=== PATIENT | female | born 1985 | race Caucasian/White ===

== ENCOUNTER 2016-07-26 10:52 | Emergency (ER) | payer MEDICARE, MEDICAID ==
[2016-07-26 11:16] VITALS: BP 138/78
[2016-07-26] MEDS ORDERED: Ondansetron 4 MG Tab.DIS PO ONE (11:43)
[2016-07-26] MEDS ORDERED: Acetaminophen 500 MG Tab PO ONE (11:43)
--- NOTE | 2016-07-26 11:51 | EDM.PDOC ---
ED HPI GENERAL MEDICAL PROBLEM - General Chief Complaint: General Stated Complaint: FELL AND HIT HEAD HARD Time Seen by Provider: 07/26/16 11:25 Source of Information: Reports: Patient History Limitations: Reports: No Limitations - History of Present Illness INITIAL COMMENTS - FREE TEXT/NARRATIVE: Patient out walking dog today, dog pulled on leash causing patient to fall. She had LOC for unknown amount of time, does not remember hitting head. Dog ran home, patients family went out looking for her, found her dazed on side of road. Patient complains of right sided head pain, nausea and photophobia. 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 Denies: Dental Pain, Ear Discharge, Ear Pain, Nose Pain, Throat Pain, Vision Change Respiratory: Denies: Shortness of Breath, Wheezing, Cough Cardiovascular: Reports: Lightheadedness. Denies: Chest Pain, Blood Pressure Problem, Dyspnea on Exertion, Edema, Palpitations Endocrine: Reports: No Symptoms GI/Abdominal: Reports: No Symptoms : Reports: No Symptoms Musculoskeletal: Reports: Neck Pain, Other (Patient complains of right sided headache. She denies pain to neck, back, all extremities and hips. ) Skin: Denies: Cyanosis, Pallor, Diaphoresis, Bruising, Rash, Erythema, Wound Neurological: Reports: Dizziness, Headache, Other (She complains of tingling and numbness sensation to right side of head/face with headache.). Denies: Confusion, Paresthesia, Seizure, Trouble Speaking, Difficulty Walking, Change in Speech, Gait Disturbance Psychiatric: Reports: Anxiety. Denies: Confusion Hematologic/Lymphatic: Reports: No Symptoms Immunologic: Reports: No Symptoms ED EXAM, GENERAL - Physical Exam Exam: See Below Exam Limited By: No Limitations General Appearance: Alert, WD/WN, No Apparent Distress, Anxious, Mild Distress Eye Exam: Bilateral Eye: Normal Inspection, PERRL, Other (No nystagmus noted) Ears: Normal External Exam, Normal Canal, Hearing Grossly Normal, Normal TMs Ear Exam: Bilateral Ear: Auricle Normal, Canal Normal, TM normal Nose: Normal Inspection, Normal Mucosa, No Blood Throat/Mouth: Normal Inspection, Normal Lips, Normal Teeth, Normal Gums, Normal Oropharynx, Normal Voice, No Airway Compromise, Other (No missing or loose teeth. ) Head: Normocephalic, Facial Tenderness, Other (No contusion, abrasions or hematoma noted. Tingling, numbness type pain to right side of face with palpation. ). No: Facial Swelling Neck: Normal Inspection, Supple, Non-Tender, Full Range of Motion. No: Limited Range of Motion, Lymphadenopathy (R) Respiratory/Chest: No Respiratory Distress, Lungs Clear, Normal Breath Sounds, No Accessory Muscle Use, Chest Non-Tender Cardiovascular: Normal Peripheral Pulses, Regular Rate, Rhythm, No Edema, No Gallop, No Murmur, No Rub Peripheral Pulses: 2+: Carotid (L), Carotid (R), Radial (L), Radial (R), Dorsalis Pedis (L), Dorsalis Pedis (R) GI/Abdominal: Normal Bowel Sounds, Soft, Non-Tender, No Organomegaly, No Distention, No Abnormal Bruit, No Mass, Pelvis Stable Back Exam: Normal Inspection, Full Range of Motion. No: CVA Tenderness (R), CVA Tenderness (L), Decreased Range of Motion, Muscle Spasm, Paraspinal Tenderness, Vertebral Tenderness Extremities: Normal Inspection, Normal Range of Motion, Non-Tender, No Pedal Edema, Normal Capillary Refill Neurological: Alert, Oriented, CN II-XII Intact, Normal Cognition, Normal Gait, Normal Reflexes, No Motor/Sensory Deficits, Other (Photophobia and dizziness noted. ) Psychiatric: Normal Affect, Anxious Skin Exam: Warm, Dry, Intact, Normal Color, No Rash. No: Ecchymosis, Petechiae Lymphatic: No Adenopathy Course - Vital Signs Last Recorded V/S: Last Vital Signs Temp 36.2 C 07/26/16 11:16 Pulse 83 07/26/16 11:16 Resp 16 07/26/16 11:16 BP 138/78 07/26/16 11:16 Pulse Ox 100 07/26/16 11:16 - Orders/Labs/Meds Meds: Medications Discontinued Medications Generic Name Dose Route Start Last Admin Trade Name Freq PRN Reason Stop Dose Admin Acetaminophen 1,000 mg 07/26/16 11:43 07/26/16 11:48 Tylenol Extra Strength PO 07/26/16 11:44 1,000 mg ONETIME ONE Administration Ketorolac Tromethamine 60 mg 07/26/16 12:30 Toradol IM 07/26/16 12:31 ONETIME ONE Ondansetron HCl 4 mg 07/26/16 11:43 07/26/16 11:48 Zofran Odt PO 07/26/16 11:44 4 mg ONETIME ONE Administration - Radiology Interpretation Free Text/Narrative:: A head CT will be completed due to unknown amount of LOC. Patient will be provided zofran and acetaminophen for nausea and pain. She has an allergy to opiates. CT Results Date: 07/26/16 (Head CT negative for acute findings. ) Departure - Departure Time of Disposition: 12:36 Disposition: DC/Tfer to [place] [id number] Condition: fair Clinical Impression: Brain concussion - Discharge Information Instructions: Concussion, Adult Referrals: PCP,None [Primary Care Provider] - Forms: ED Department Discharge Additional Instructions: You had a fall with unknown amount of time unconscious. Your head CT was negative. You may have a concussion. You can take acetaminophen and ibuprofen as directed for your pain. You may have continued dizziness, nausea and headache. Follow up with a primary care provider in 1 to 2 weeks if not better. You can take ondansetron as directed for nausea. Keep yourself hydrated. Return for worsening of symptoms. - Assessment/Plan Assessment:: Fall with LOC, concussion Plan: Patietn had a fall with unknown amount of time unconscious. Head CT was negative. Concussion. She can take acetaminophen and ibuprofen as directed for your pain. She may have continued dizziness, nausea and headache. Follow up with a primary care provider in 1 to 2 weeks if not better. She can take ondansetron as directed for nausea. Keep herself hydrated. Return for worsening of symptoms.
--- NOTE | 2016-07-26 12:12 | CT ---
Head wo Cont HISTORY: Fall. Or a partial radiology haven't negative head CT on Frannie fracture COMPARISON: None TECHNIQUE: Noncontrast enhanced axial cuts were obtained of the brain. Total DLP: 657. FINDINGS:There is no cerebral or subdural hemorrhage. There is no mass effect or edema. The ventricl es and CSF spaces are appropriate for age. No space occupying lesions are demonstrated. The orbital structures are unremarkable. The sinuses demonstrate normal aeration. IMPRESSION: Negative exam.
[2016-07-26] MEDS ORDERED: Ketorolac 60 MG/2 ML SDV IM ONE (12:30)
== END 2016-07-26 13:15 | disposition home or self-care (01) ==
LOC: JP.ED 10:52
DX: S06.0X9A Concussion with loss of consciousness of unspecified duration, initial encounter (principal); F41.9 Anxiety disorder, unspecified; F17.210 Nicotine dependence, cigarettes, uncomplicated; Z88.5 Allergy status to narcotic agent; Z98.51 Tubal ligation status; W01.0XXA Fall on same level from slipping, tripping and stumbling without subsequent striking against object, initial encounter
CPT/HCPCS: 70450; 96372; 99284; 99285; A9270; J1885

== ENCOUNTER 2017-05-27 11:20 | Emergency (ER) | payer MEDICARE, MEDICAID ==
[2017-05-27] MEDS ORDERED: Lactated Ringers 1,000 ML IV ONE (12:38)
[2017-05-27] MEDS ORDERED: Ketorolac 30 MG/ML SDV IVPUSH ONE (12:38)
[2017-05-27] MEDS ORDERED: Ondansetron 4 MG/2 ML SDV IVPUSH ONE (12:38)
--- NOTE | 2017-05-27 12:41 | EDM.PDOC ---
ED HPI GENERAL MEDICAL PROBLEM - General Chief Complaint: Abdominal Pain Stated Complaint: ABDOMINAL PAIN Time Seen by Provider: 05/27/17 12:20 Source of Information: Reports: Patient, Old Records, RN Notes Reviewed History Limitations: Reports: No Limitations - History of Present Illness INITIAL COMMENTS - FREE TEXT/NARRATIVE: 32-year-old female presents to the emergency department today complaint of abdominal pain, this is her third visit for abdominal pain, initially evaluated at [facility] on May 23 urinalysis and x-ray done at that time urinalysis unrevealing x-ray showed moderate to large amount of stool Zofran provided for treatment. Was evaluated by primary care yesterday workup included CBC, CMP beta -hCG and urinalysis also unremarkable wet prep was negative Chlamydia is pending treated empirically with Rocephin and doxycycline. 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: Psychiatric History: Reports: Anxiety - Past Surgical History HEENT Surgical History: Reports: Tonsillectomy GI Surgical History: Reports: Appendectomy Female Surgical History: Reports: Tubal Ligation Social & Family History - Tobacco Use Smoking Status *Q: Light Tobacco Smoker Years of Tobacco use: 7 Packs/Tins Daily: 0.5 - Caffeine Use Caffeine Use: Reports: None - Recreational Drug Use Recreational Drug Use: No ED ROS GENERAL - Review of Systems Review Of Systems: See Below Constitutional: Denies: Fever, Chills HEENT: Reports: No Symptoms Respiratory: Reports: No Symptoms Cardiovascular: Reports: No Symptoms GI/Abdominal: Reports: Abdominal Pain, Nausea, Vomiting. Denies: Constipation, Diarrhea : Reports: No Symptoms Musculoskeletal: Reports: No Symptoms Skin: Reports: No Symptoms Neurological: Reports: No Symptoms ED EXAM, GI/ABD - Physical Exam Exam: See Below Exam Limited By: No Limitations General Appearance: Alert, Mild Distress Eyes: Bilateral: Normal Appearance Head: Atraumatic, Normocephalic Neck: Normal Inspection, Supple, Non-Tender, Full Range of Motion Respiratory/Chest: No Respiratory Distress, Lungs Clear, Normal Breath Sounds, No Accessory Muscle Use Cardiovascular: Regular Rate, Rhythm, No Murmur GI/Abdominal Exam: Normal Bowel Sounds, Soft, No Organomegaly, No Distention, No Mass, Tender (Right lower quadrant) Back Exam: Normal Inspection, Full Range of Motion. No: CVA Tenderness (R), CVA Tenderness (L) Course - Vital Signs Last Recorded V/S: Last Vital Signs Temp 96.1 F 05/27/17 12:04 Pulse 86 05/27/17 14:02 Resp 16 05/27/17 14:02 BP 126/81 05/27/17 14:02 Pulse Ox 95 05/27/17 14:02 - Orders/Labs/Meds Orders: Active Orders 24 hr Category Date Time Status Iopamidol [Isovue-300 (61%)] Med 05/27/17 12:47 Active 88 ml IV . DIRECTED PRN Sodium Chloride 0.9% [Normal Saline] 70 ml Med 05/27/17 13:00 Active IV ASDIRECTED Medication Orders Sodium Chloride (Normal Saline) 70 mls @ 3 mls/sec IV ASDIRECTED THERON Last Admin: 05/27/17 13:03 Dose: 3 mls/sec Iopamidol (Isovue-300 (61%)) 88 ml IV . DIRECTED PRN PRN Reason: RADIOLOGY EXAM Stop: 05/28/17 12:48 Last Admin: 05/27/17 13:03 Dose: 88 ml Meds: Medications Generic Name Dose Route Start Last Admin Trade Name Freq PRN Reason Stop Dose Admin Sodium Chloride 70 mls @ 3 mls/sec 05/27/17 13:00 05/27/17 13:03 Normal Saline IV 3 mls/sec ASDIRECTED THERON Administration Iopamidol 88 ml 05/27/17 12:47 05/27/17 13:03 Isovue-300 (61%) IV 05/28/17 12:48 88 ml . DIRECTED PRN Administration RADIOLOGY EXAM Discontinued Medications Generic Name Dose Route Start Last Admin Trade Name Freq PRN Reason Stop Dose Admin Acetaminophen 650 mg 05/27/17 13:50 05/27/17 14:01 Tylenol PO 05/27/17 13:51 650 mg NOW ONE Administration Al Hydroxide/Mg Hydroxide 15 0 ml 05/27/17 14:32 ml/ Lidocaine HCl 15 ml PO 05/27/17 14:33 ONETIME ONE Lactated Ringer's 1,000 mls @ 999 mls/hr 05/27/17 12:38 05/27/17 13:21 Ringers, Lactated IV 05/27/17 13:38 999 mls/hr BOLUS ONE Administration Ketorolac Tromethamine 30 mg 05/27/17 12:38 05/27/17 13:20 Toradol IVPUSH 05/27/17 12:39 30 mg ONETIME ONE Administration Ondansetron HCl 4 mg 05/27/17 12:38 05/27/17 13:23 Zofran IVPUSH 05/27/17 12:39 4 mg ONETIME ONE Administration Departure - Departure Time of Disposition: 14:47 Disposition: Home, Self-Care 01 Condition: Fair Clinical Impression: Abdominal pain Qualifiers: Abdominal location: lower abdomen, unspecified Qualified Code(s): R10.30 - Lower abdominal pain, unspecified - Discharge Information Referrals: PCP,None [Primary Care Provider] - Forms: ED Department Discharge Additional Instructions: Please followup with your primary care provider in 3-5 days if not better, please call return to the emergency department with worsening of symptoms. - My Orders Last 24 Hours: My Active Orders 05/27/17 12:47 Iopamidol [Isovue-300 (61%)] 88 ml IV . DIRECTED PRN 05/27/17 13:00 Sodium Chloride 0.9% [Normal Saline] 70 ml IV ASDIRECTED - Assessment/Plan Last 24 Hours: My Active Orders 05/27/17 12:47 Iopamidol [Isovue-300 (61%)] 88 ml IV . DIRECTED PRN 05/27/17 13:00 Sodium Chloride 0.9% [Normal Saline] 70 ml IV ASDIRECTED Plan: Assessment Acuity = acute Site and laterality = abdominal pain, vaginal discharge nausea and vomiting Etiology = suspicious for pelvic inflammatory disease Manifestations = none Location of injury = Home Lab values = CT scan abdomen and pelvis shows no acute process Plan she declined any further workup at this time recommend continue antibiotics of doxycycline follow-up primary care 3-5 days for reevaluation This note was dictated using [employer] voice recognition software please call with any questions on syntax or wendy.
[2017-05-27] MEDS ORDERED: Iopamidol 612 MG/ML 100 ML Bottle IV PRN (12:47)
--- NOTE | 2017-05-27 13:25 | CT ---
Abdomen Pelvis w Cont HISTORY: Right lower quadrant pain, history of appendectomy Axial spiral enhanced CT scan of the abdomen and pelvis was obtained using IV contrast only. Coronal reconstructions were obtained. There are no prior exams for comparison. Auto dosage and iterative reconstruction techniques were employed. FINDINGS: Heart size is within normal limits. Lung bases are clear. No focal abnormality of the liver or spleen is identified. There is a small accessory splenule adjacent to the anterior margin of the spleen. I see no abnormality of the gallbladder, pancreas, adrenal glands, or kidneys. There is no bi liary or pancreatic duct dilatation. No renal stone disease is identified. I see no hydronephrosis or ureteral dilatation. Abdominal aorta is unremarkable. No pelvic mass or abnormal fluid collections are seen. There is a small involuting follicular cyst on the left ovary measuring proximally 8 x 10 mm. I see no pelvic, retroperitoneal, or mesenteric adeno angela. There is no free air or free fluid. Probable tubal ligation clips are noted bilaterally. Loops of small bowel are nondistended. The patient has history of prior appendectomy. I see no diverticula r disease or other colon abnormality. No lytic or blastic bony lesion is seen. IMPRESSION: 1. No acute intra-abdominal or pelvic abnormality is identified. 2. History of appendectomy. Probable bilateral tubal ligation clips are noted. 3. A small involuting follicular cyst is noted on the left ovary. Report was called to Officer in the Emergency Department at 1320 hours.
[2017-05-27] MEDS ORDERED: Acetaminophen 325 MG Tab PO ONE (13:50)
[2017-05-27 14:03] VITALS: BP 126/81
[2017-05-27] MEDS ORDERED: Alum Hydrox/Mag Hydrox/Simeth 15 ML, Lidocaine 2% 15 ML PO ONE ×2 (14:32)
== END 2017-05-27 14:54 | disposition home or self-care (01) ==
LOC: JP.ED 11:20
DX: R10.30 Lower abdominal pain, unspecified (principal); F17.210 Nicotine dependence, cigarettes, uncomplicated; Z88.5 Allergy status to narcotic agent
CPT/HCPCS: 74177; 96361; 96374; 96375; 99284; A9270; J1885; J2405; J7030; J7120; Q9967

== ENCOUNTER 2018-06-24 13:13 | Emergency (ER) | payer MEDICARE, MEDICAID ==
[2018-06-24 14:01] VITALS: BP 124/71
[2018-06-24] MEDS ORDERED: Ketorolac 60 MG/2 ML SDV IM ONE (14:05)
[2018-06-24] MEDS ORDERED: traMADol 50 MG Tab PO ONE (14:09)
--- NOTE | 2018-06-24 14:10 | EDM.PDOC ---
ED HPI GENERAL MEDICAL PROBLEM - General Chief Complaint: Back Pain or Injury Stated Complaint: LOWER BACK PAIN Time Seen by Provider: 06/24/18 13:55 Source of Information: Reports: Patient, Old Records, RN History Limitations: Reports: No Limitations - History of Present Illness INITIAL COMMENTS - FREE TEXT/NARRATIVE: 33 yo female presents with progressive low back pain over the past several days. Has not been to the clinic for this. 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 She has a hx of kidney stones, but this feels different. Movement exacerbates. No bowel or bladder dysfunction. No fever or chills. No self treatment. Is allergic to opiates. Feels somewhat like her SI joint pain but extends higher. No urinary sx's. Has fibromyalgia also. She lives in [place], her provider is in [place], [place]. 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 below) (none) - Related Data Allergies Allergy/AdvReac Type Severity Reaction Status Date / Time opioids Allergy Hives Uncoded 06/24/18 13:39 Home Meds: Home Meds Cyclobenzaprine [Flexeril] 10 mg PO TID PRN #10 tab 06/24/18 [Rx] FLUoxetine HCl [Fluoxetine HCl] 06/24/18 [History] clonazePAM [Clonazepam] 1 mg PO 06/24/18 [History] traMADol [Ultram] 50 - 100 mg PO Q6H PRN #14 tab 06/24/18 [Rx] 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: Psychiatric History: Reports: Anxiety - Past Surgical History HEENT Surgical History: Reports: Tonsillectomy GI Surgical History: Reports: Appendectomy Female Surgical History: Reports: Tubal Ligation Social & Family History - Tobacco Use Smoking Status *Q: Current Every Day Smoker Years of Tobacco use: 19 Packs/Tins Daily: 0.5 - Caffeine Use Caffeine Use: Reports: Coffee - Recreational Drug Use Recreational Drug Use: No ED ROS GENERAL - Review of Systems Review Of Systems: See Below Constitutional: Reports: No Symptoms HEENT: Reports: No Symptoms Respiratory: Reports: No Symptoms Cardiovascular: Reports: No Symptoms GI/Abdominal: Reports: No Symptoms : Reports: No Symptoms Musculoskeletal: Reports: Back Pain (low) Skin: Reports: No Symptoms Neurological: Reports: No Symptoms Psychiatric: Reports: No Symptoms ED EXAM,LOWER BACK PAIN/INJURY - Physical Exam Exam: See Below Exam Limited By: No Limitations General Appearance: Alert, WD/WN, Mild Distress, Obese Eye Exam: Bilateral Eye: Normal Inspection Ears: Normal External Exam, Normal Canal, Hearing Grossly Normal, Normal TMs Nose: Normal Inspection, No Blood Throat/Mouth: Normal Inspection, Normal Lips, Normal Oropharynx, Normal Voice, No Airway Compromise Head: Atraumatic, Normocephalic Neck: Normal Inspection, Supple, Non-Tender Respiratory/Chest: No Respiratory Distress, Lungs Clear, Normal Breath Sounds, No Accessory Muscle Use Cardiovascular: Regular Rate, Rhythm, No Edema GI/Abdominal: Normal Bowel Sounds, Soft, Non-Tender, No Distention Back Exam: Normal Inspection, Other (Tenderness to bilateral paraspinous regions of lumbar spine and down to and including the SI jts. ). No: CVA Tenderness (R), CVA Tenderness (L) Extremities: Normal Inspection, Normal Range of Motion, Non-Tender, No Pedal Edema Neurological: Alert, Normal Mood/Affect, CN II-XII Intact, Normal Plantar Flexion, No Motor/Sensory Deficits, Oriented x 3 Psychiatric: Normal Affect, Normal Mood Skin Exam: Warm, Dry, Intact, Normal Color, No Rash Course - Vital Signs Text/Narrative:: Moderate relief achieved with these meds. Last Recorded V/S: Last Vital Signs Temp 36.2 C 06/24/18 13:55 Pulse 81 06/24/18 13:55 Resp 18 06/24/18 13:55 BP 124/71 06/24/18 13:55 Pulse Ox 99 06/24/18 13:55 - Orders/Labs/Meds Orders: Active Orders 24 hr Category Date Time Status Lumbar Spine 2 or 3V [CR] Stat Exams 06/24/18 14:13 Taken Labs: Laboratory Tests 06/24/18 Range/Units 14:05 Urine Color Yellow Urine Appearance Slightly cloudy Urine pH 6.0 (4.5-8.0) Ur Specific [place] 1.010 (1.008-1.030) Urine Protein Negative (NEGATIVE) mg/dL Urine Glucose (UA) 100 H (NEGATIVE) mg/dL Urine Ketones 15 H (NEGATIVE) mg/dL Urine Occult Blood Negative (NEGATIVE) Urine Nitrite Negative (NEGATIVE) Urine Bilirubin Negative (NEGATIVE) Urine Urobilinogen Normal (NORMAL) mg/dL Ur Leukocyte Esterase Negative (NEGATIVE) Urine RBC Not seen (0-5) Urine WBC Not seen (0-5) Ur Epithelial Cells Few Amorphous Sediment Not seen Urine Bacteria Not seen Urine Mucus Not seen Urine Other See note Meds: Medications Discontinued Medications Generic Name Dose Route Start Last Admin Trade Name Sen PRN Reason Stop Dose Admin Ketorolac Tromethamine 60 mg 06/24/18 14:05 06/24/18 14:39 Toradol IM 06/24/18 14:06 60 mg ONETIME ONE Administration Tramadol HCl 50 mg 06/24/18 14:09 06/24/18 14:46 Ultram PO 06/24/18 14:10 50 mg ONETIME ONE Administration - Radiology Interpretation Free Text/Narrative:: L/S spine-neg Departure - Departure Time of Disposition: 15:13 Disposition: Home, Self-Care 01 Condition: Fair Clinical Impression: Low back pain Qualifiers: Chronicity: acute Back pain laterality: midline Sciatica presence: without sciatica Qualified Code(s): M54.5 - Low back pain - Discharge Information *PRESCRIPTION DRUG MONITORING PROGRAM REVIEWED*: No *COPY OF PRESCRIPTION DRUG MONITORING REPORT IN PATIENT CUATE: No Instructions: Acute Back Pain, Adult Referrals: PCP,None [Primary Care Provider] - Forms: ED Department Discharge Additional Instructions: Avoid lifting, bending, or twisting. Take ibuprofen 600 mg every 6 hrs with food starting after 8 pm today. Take acetaminophen 650 mg every 4 hrs as needed for pain relief. Use Flexeril every 8 hrs as needed. Take tramadol as directed if these other interventions are not helping. No diving when take Flexeril or more than one tramadol at a time. Recheck with your doctor early this next week. - My Orders Last 24 Hours: My Active Orders 06/24/18 14:13 Lumbar Spine 2 or 3V [CR] Stat - Assessment/Plan Last 24 Hours: My Active Orders 06/24/18 14:13 Lumbar Spine 2 or 3V [CR] Stat
--- NOTE | 2018-06-24 15:58 | CRLCR ---
HISTORY: Low back pain. No injury. Silver-Charbel syndrome. TECHNIQUE: Lumbar spine 3 views. COMPARISON: None. FINDINGS: Five lumbar type vertebral bodies. Alignment, vertebral body heights, and disc spaces are maintained. Pedicles appear intact. IMPRESSION: Unremarkable radiographs of the lumbar spine. Dictated by Blayne Gallo MD @ Jun 24 2018 3:57PM Signed by Dr. Blayne Gallo @ Jun 24 2018 3:57PM
== END 2018-06-24 15:27 | disposition home or self-care (01) ==
LOC: JP.ED 13:13
DX: M54.5 Low back pain (principal); F17.210 Nicotine dependence, cigarettes, uncomplicated; F41.9 Anxiety disorder, unspecified; Z79.899 Other long term (current) drug therapy; Z88.8 Allergy status to other drugs, medicaments and biological substances
CPT/HCPCS: 72100; 81001; 82962; 96372; 99283; A9270; J1885

== ENCOUNTER 2019-02-24 16:32 | Emergency (ER) | payer MEDICAID, MEDICARE ==
[2019-02-24 17:18] VITALS: BP 126/73; PULSE 106
[2019-02-24] MEDS ORDERED: Bacitracin Oint 1 GM U/D Packet TOP ONE (17:42)
--- NOTE | 2019-02-24 17:43 | EDM.PDOC ---
ED HPI GENERAL MEDICAL PROBLEM - General Chief Complaint: ENT Problem Stated Complaint: EARACHE Time Seen by Provider: 02/24/19 17:46 Source of Information: Reports: Patient History Limitations: Reports: No Limitations - History of Present Illness INITIAL COMMENTS - FREE TEXT/NARRATIVE: pt has a swollen rt ear lobe. There is a pustule at the entrance of the ear Onset: Gradual Duration: Hour(s): Location: Reports: Face Associated Symptoms: Reports: No Other Symptoms Right Ear Pain Score (Numeric/FACES): 7 - Related Data Allergies Allergy/AdvReac Type Severity Reaction Status Date / Time acetaminophen [From Percocet] Allergy Hives Verified 02/24/19 17:23 hydrocodone [From Vicodin] Allergy Hives Verified 02/24/19 17:23 morphine Allergy Hives Verified 02/24/19 17:23 oxycodone [From Percocet] Allergy Hives Verified 02/24/19 17:23 Home Meds: Home Meds FLUoxetine HCl [Fluoxetine HCl] 10 mg PO DAILY 06/24/18 [History] clonazePAM [Clonazepam] 1 mg PO DAILY PRN 06/24/18 [History] [place] Carbonate 300 mg PO TID 02/24/19 [History] 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: Psychiatric History: Reports: Anxiety - Infectious Disease History Infectious Disease History: Reports: Chicken Pox, Influenza - Past Surgical History HEENT Surgical History: Reports: Tonsillectomy GI Surgical History: Reports: Appendectomy Female Surgical History: Reports: Tubal Ligation Social & Family History - Tobacco Use Smoking Status *Q: Current Every Day Smoker Years of Tobacco use: 19 Packs/Tins Daily: 0.5 - Caffeine Use Caffeine Use: Reports: Coffee, Soda - Recreational Drug Use Recreational Drug Use: No ED ROS ENT - Review of Systems Review Of Systems: See Below Constitutional: Reports: Other ( sig pain in the rt ear lobe area. ) HEENT: Reports: Other ( ear lobe pain) Respiratory: Reports: No Symptoms Cardiovascular: Reports: No Symptoms Endocrine: Reports: No Symptoms GI/Abdominal: Reports: No Symptoms : Reports: No Symptoms Musculoskeletal: Reports: No Symptoms ED EXAM, ENT - Physical Exam Exam: See Below Text/Narrative:: pt arrived with a pustule on the rt ear lobe. There is a pustule that was opened and cultured. Exam Limited By: No Limitations General Appearance: Alert, Anxious Ears: Other ( rt ear lobe has a pustule that was cultured. The entire lobe was swollen. This is very tender. the drum is normal. ) Nose: Normal Inspection Mouth/Throat: Normal Inspection Head: Atraumatic Neck: Lymphadenopathy (R) Respiratory/Chest: No Respiratory Distress Course - Vital Signs Last Recorded V/S: Last Vital Signs Temp 36.4 C 02/24/19 17:28 Pulse 106 H 02/24/19 17:28 Resp 16 02/24/19 17:28 BP 126/73 02/24/19 17:28 Pulse Ox 100 02/24/19 17:28 - Orders/Labs/Meds Orders: Active Orders 24 hr Category Date Time Status CULTURE EAR + SMEAR [RM] Stat Lab 02/24/19 17:48 Results Meds: Medications Discontinued Medications Generic Name Dose Route Start Last Admin Trade Name Freq PRN Reason Stop Dose Admin Bacitracin 1 dose 02/24/19 17:42 02/24/19 17:48 Bacitracin Oint 1 Gm TOP 02/24/19 17:43 1 dose ONETIME ONE Administration - Re-Assessments/Exams Free Text/Narrative Re-Assessment/Exam: 02/25/19 07:18 The pustule at the entrance of the rt ear canal was cleansed well and opened with a 11 blade , pus did return and it was cultured. SWith further pressure some sebaceou material was expressed. It was cleaned again and bscatracin ointment was applied. Departure - Departure Time of Disposition: 17:42 Disposition: Home, Self-Care 01 Condition: Fair Clinical Impression: Cellulitis of external ear - Discharge Information Instructions: Cellulitis, Adult, [id number] Referrals: PCP,None [Primary Care Provider] - Forms: ED Department Discharge Care Plan Goals: MOIST WARM PACKS TO THE EXTERNAL EAR, KEFLEX 500MG TID IF NOT IMPROVING IN NEXT 4-5 DAYS. rtc for a recheck. Sepsis Event Note - Evaluation Sepsis Screening Result: No Definite Risk - Focused Exam Date Exam was Performed: 02/25/19 Time Exam was Performed: 07:18 - My Orders Last 24 Hours: My Active Orders 02/24/19 17:48 CULTURE EAR + SMEAR [RM] Stat - Assessment/Plan Last 24 Hours: My Active Orders 02/24/19 17:48 CULTURE EAR + SMEAR [RM] Stat
== END 2019-02-24 17:51 | disposition home or self-care (01) ==
LOC: JP.ED 16:32
DX: H60.11 Cellulitis of right external ear (principal); F17.210 Nicotine dependence, cigarettes, uncomplicated; F41.9 Anxiety disorder, unspecified; Z88.6 Allergy status to analgesic agent; Z88.5 Allergy status to narcotic agent; Z79.899 Other long term (current) drug therapy
CPT/HCPCS: 10060; 87070; 87077; 87186; 87205; 99283; 99283-25

== ENCOUNTER 2019-03-23 17:40 | Emergency (ER) | payer MEDICARE ==
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
[2019-03-23] MEDS ORDERED: Acetaminophen 325 MG Tab PO ONE (18:39)
[2019-03-23 18:56] VITALS: BP 128/79; PULSE 95
== END 2019-03-23 20:26 | disposition home or self-care (01) ==
LOC: JP.ED 17:40
DX: R10.30 Lower abdominal pain, unspecified (principal); G40.909 Epilepsy, unspecified, not intractable, without status epilepticus; F17.210 Nicotine dependence, cigarettes, uncomplicated; Z88.6 Allergy status to analgesic agent; Z88.5 Allergy status to narcotic agent; Z79.899 Other long term (current) drug therapy
CPT/HCPCS: 36415; 80053; 81001; 81025; 85025; 86140; 99284; A9270; 99283

== ENCOUNTER 2019-05-18 19:44 | Emergency (ER) | payer MEDICARE, MEDICAID ==
[2019-05-18 20:00] VITALS: BP 153/94; PULSE 92
--- NOTE | 2019-05-18 20:20 | EDM.PDOC ---
ED HPI GENERAL MEDICAL PROBLEM - General Chief Complaint: ENT Problem Stated Complaint: TOOTH PULLED/BAD TASTE IN MOUTH Time Seen by Provider: 05/18/19 20:13 Source of Information: Reports: Patient History Limitations: Reports: No Limitations - History of Present Illness INITIAL COMMENTS - FREE TEXT/NARRATIVE: Patient presents because of pain, nausea, vomiting in the context of recent mandibular molar extraction. On Tuesday, 14 May, she had tooth #18 extracted at a dental office in [place], [place]. Beginning yesterday, 16 May, she noticed a bad taste in her mouth which is making her nauseated and vomit. She has been using ibuprofen for pain because she has allergies to a number of narcotic pain medications. She may be getting stomach irritation because of that. She has vomited several times at home today. She has been unable to get a hold of her dental office today. She is not on antibiotics at this time. The tooth is uncomfortable but also is annoyed by to taste in her mouth and GI complaints. No fever or chills. No other new concerns. Onset: Gradual Duration: Day(s): (2) Location: Reports: Head Quality: Reports: Ache, Throbbing Severity: Mild Improves with: Reports: None Worsens with: Reports: Eating Associated Symptoms: Reports: Nausea/Vomiting tooth Pain Score (Numeric/FACES): 9 - Related Data Allergies Allergy/AdvReac Type Severity Reaction Status Date / Time hydrocodone [From Vicodin] Allergy Hives Verified 05/18/19 19:55 morphine Allergy Hives Verified 05/18/19 19:55 oxycodone [From Percocet] Allergy Hives Verified 05/18/19 19:55 Home Meds: Home Meds clonazePAM [Clonazepam] 1 mg PO DAILY PRN 06/24/18 [History] [place] Carbonate 300 mg PO BID 02/24/19 [History] 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: Neurological History: Reports: Seizure Psychiatric History: Reports: Anxiety - Infectious Disease History Infectious Disease History: Reports: Chicken Pox, Influenza - Past Surgical History HEENT Surgical History: Reports: Tonsillectomy GI Surgical History: Reports: Appendectomy Female Surgical History: Reports: Tubal Ligation Social & Family History - Tobacco Use Smoking Status *Q: Current Every Day Smoker Years of Tobacco use: 17 Packs/Tins Daily: 0.2 - Caffeine Use Caffeine Use: Reports: Coffee - Recreational Drug Use Recreational Drug Use: No ED ROS ENT - Review of Systems Review Of Systems: Comprehensive ROS is negative, except as noted in HPI. ED EXAM, ENT - Physical Exam Exam: See Below Text/Narrative:: She is seated on the table in exam room 1 with intermittent gagging as we review things. Exam Limited By: No Limitations General Appearance: Alert, Mild Distress Mouth/Throat: Dental Tenderness, Gum Swelling, Other (There is a mixture of ortiz and light brown material in the socket of tooth #18.) Respiratory/Chest: No Respiratory Distress Cardiovascular: Regular Rate, Rhythm Course - Vital Signs Last Recorded V/S: Last Vital Signs Temp 36.3 C 05/18/19 19:59 Pulse 92 05/18/19 19:59 Resp 15 05/18/19 19:59 BP 153/94 H 05/18/19 19:59 Pulse Ox 98 05/18/19 19:59 - Orders/Labs/Meds Meds: Medications Discontinued Medications Generic Name Dose Route Start Last Admin Trade Name Sen PRN Reason Stop Dose Admin Ceftriaxone Sodium 500 mg 05/18/19 20:24 05/18/19 20:40 Rocephin IM 05/18/19 20:25 Not Given ONETIME ONE Ceftriaxone Sodium 500 mg/ 0 mg 05/18/19 20:29 05/18/19 20:40 Lidocaine HCl 1 ml IM 05/18/19 20:30 1 inj ONETIME ONE Administration Promethazine HCl 25 mg 05/18/19 20:22 05/18/19 20:30 Phenergan IM 05/18/19 20:23 25 mg ONETIME ONE Administration - Re-Assessments/Exams Free Text/Narrative Re-Assessment/Exam: 05/18/19 23:50 The patient received promethazine 25 mg and ceftriaxone 500 mg, both as intramuscular doses. [facility] prescriptions for amoxicillin 500 mg, 20 tablets and promethazine 25 mg, 15 tablets; both use as directed. Salt water rinses to the mouth are appropriate. Use of chewing gum to cover the decayed tooth and improve pain discussed. She should contact her dental group on Tuesday, 20 May for further advice. Departure - Departure Time of Disposition: 21:09 Disposition: Home, Self-Care 01 Condition: Good Clinical Impression: Dental abscess, Nausea and vomiting - Discharge Information *PRESCRIPTION DRUG MONITORING PROGRAM REVIEWED*: Not Applicable *COPY OF PRESCRIPTION DRUG MONITORING REPORT IN PATIENT CUATE: Not Applicable Instructions: Dental Abscess, [id number] Referrals: PCP,None [Primary Care Provider] - Forms: ED Department Discharge Additional Instructions: Use warm saltwater mouth swishes, 5 minutes of swishing 4 times a day until you hear back from your dentist. Start antibiotics tomorrow morning. Use nausea medication as discussed. Return to emergency Department if feeling worse in anyway. Sepsis Event Note - Evaluation Sepsis Screening Result: No Definite Risk - Focused Exam Vital Signs: Vital Signs Temp Pulse Resp BP Pulse Ox 05/18/19 19:59 36.3 C 92 15 153/94 H 98 Date Exam was Performed: 05/18/19 Time Exam was Performed: 23:49
[2019-05-18] MEDS ORDERED: Promethazine 25 MG/ML SDV IM ONE (20:22)
[2019-05-18] MEDS ORDERED: cefTRIAXone 500 MG Vial IM ONE (20:24)
[2019-05-18] MEDS ORDERED: cefTRIAXone 500 MG, Lidocaine 1% 1 ML IM ONE ×2 (20:29)
== END 2019-05-18 21:17 | disposition home or self-care (01) ==
LOC: JP.ED 19:44
DX: K04.7 Periapical abscess without sinus (principal); R11.2 Nausea with vomiting, unspecified; F17.210 Nicotine dependence, cigarettes, uncomplicated; Z88.5 Allergy status to narcotic agent
CPT/HCPCS: 96372; 99283; J0696; J2001; J2550

== ENCOUNTER 2019-10-13 00:45 | Emergency (ER) | payer MEDICARE, MEDICAID ==
[2019-10-13] MEDS ORDERED: Sodium Chloride 0.9% 1,000 ML IV SCH (01:00)
--- NOTE | 2019-10-13 01:08 | EDM.PDOC ---
ED HPI GENERAL MEDICAL PROBLEM - General Stated Complaint: MEDICAL [facility]IA [facility] Time Seen by Provider: 10/13/19 00:45 Source of Information: Reports: Patient, EMS History Limitations: Reports: No Limitations - History of Present Illness INITIAL COMMENTS - FREE TEXT/NARRATIVE: 34-year-old female with chronic depression, actually recently had electroshock therapy at [facility] in [place] and is on lithium. Tonight she overdosed on lithium, taking most of her pills because her mother told her she was worthless. Patient is not cooperating or telling me what time she took the pills or how anyone found out how she took the pills, but they did find her with a lot of emesis in the room, a lot of pills and particular matter were in the emesis but she may have taken up to 90 300 mg lithium pills. Initially she was very lethargic, she now seems to be more alert and conversing with us, answering questions but is not cooperating. There was concern for first responders that there may have been some seizure activity initially. Onset: Sudden Duration: Other Associated Symptoms: Reports: Confusion, Malaise, Nausea/Vomiting, Weakness. 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: Neurological History: Reports: Seizure Psychiatric History: Reports: Anxiety - Infectious Disease History Infectious Disease History: Reports: Chicken Pox, Influenza - Past Surgical History HEENT Surgical History: Reports: Tonsillectomy GI Surgical History: Reports: Appendectomy Female Surgical History: Reports: Tubal Ligation Social & Family History - Caffeine Use Caffeine Use: Reports: Coffee ED ROS GENERAL - Review of Systems Review Of Systems: See Below Constitutional: Denies: Fever, Chills Respiratory: Denies: Shortness of Breath Cardiovascular: Denies: Chest Pain GI/Abdominal: Reports: Abdominal Pain, Nausea, Vomiting. Denies: Diarrhea Skin: Reports: No Symptoms Neurological: Reports: Dizziness, Seizure (Possible seizure activity according to first responders), Weakness ED EXAM, GENERAL - Physical Exam Exam: See Below Exam Limited By: Uncooperative General Appearance: Alert, No Apparent Distress, Lethargic, Other (Patient was initially lethargic but rapidly improved) Eye Exam: Bilateral Eye: Normal Inspection Head: Atraumatic Neck: Non-Tender Respiratory/Chest: Lungs Clear Cardiovascular: Regular Rate, Rhythm, Tachycardia (Mild tachycardia) GI/Abdominal: Soft, Tender (Reacts with some tenderness to palpation but states diffuse, nothing focal and no guarding or rebound) Neurological: Alert, Oriented, No Motor/Sensory Deficits Psychiatric: Depressed Mood, Flat Affect Skin Exam: Warm, Dry Course - Vital Signs Last Recorded V/S: Last Vital Signs Temp 98.1 F 10/13/19 02:35 Pulse 88 10/13/19 02:35 Resp 16 10/13/19 02:35 BP 114/73 10/13/19 02:35 Pulse Ox 95 10/13/19 02:35 - Orders/Labs/Meds Orders: Active Orders 24 hr Category Date Time Status EKG 12 Lead [EK] Routine Ther 10/13/19 00:48 Ordered Labs: Laboratory Tests 10/13/19 10/13/19 10/13/19 Range/Units 01:02 01:02 01:02 WBC 11.2 H (4.5-11.0) K/uL RBC 4.59 (3.30-5.50) M/uL Hgb 13.2 (12.0-15.0) g/dL Hct 41.3 (36.0-48.0) % MCV 90 (80-98) fL MCH 29 (27-31) pg MCHC 32 (32-36) % Plt Count 358 (150-400) K/uL Neut % (Auto) 71 H (36-66) % Lymph % (Auto) 22 L (24-44) % [place] % (Auto) 6 (2-6) % Eos % (Auto) 1 L (2-4) % Baso % (Auto) 0 (0-1) % Sodium 140 (140-148) mmol/L Potassium 3.2 L (3.6-5.2) mmol/L Chloride 108 (100-108) mmol/L Carbon Dioxide 21 (21-32) mmol/L Anion Gap 14.2 H (5.0-14.0) mmol/L BUN 8 (7-18) mg/dL Creatinine 0.9 (0.6-1.0) mg/dL Est Cr Clr Drug Dosing 62.67 mL/min Estimated GFR (MDRD) > 60 (>60) Glucose 94 (74-106) mg/dL Calcium 8.8 (8.5-10.1) mg/dL Total Bilirubin 0.2 (0.2-1.0) mg/dL AST 14 L (15-37) U/L ALT 19 (12-78) U/L Alkaline Phosphatase 86 (46-116) U/L Total Protein 7.9 (6.4-8.2) g/dL Albumin 4.0 (3.4-5.0) g/dL Globulin 3.9 H (2.3-3.5) g/dL Albumin/Globulin Ratio 1.0 L (1.2-2.2) Salicylates (2.0-20.0) mg/dL Acetaminophen 0.0 L (10.0-30.0) ug/mL Ethyl Alcohol mg/dL 10/13/19 10/13/19 Range/Units 01:02 01:02 WBC (4.5-11.0) K/uL RBC (3.30-5.50) M/uL Hgb (12.0-15.0) g/dL Hct (36.0-48.0) % MCV (80-98) fL MCH (27-31) pg MCHC (32-36) % Plt Count (150-400) K/uL Neut % (Auto) (36-66) % Lymph % (Auto) (24-44) % [place] % (Auto) (2-6) % Eos % (Auto) (2-4) % Baso % (Auto) (0-1) % Sodium (140-148) mmol/L Potassium (3.6-5.2) mmol/L Chloride (100-108) mmol/L Carbon Dioxide (21-32) mmol/L Anion Gap (5.0-14.0) mmol/L BUN (7-18) mg/dL Creatinine (0.6-1.0) mg/dL Est Cr Clr Drug Dosing mL/min Estimated GFR (MDRD) (>60) Glucose (74-106) mg/dL Calcium (8.5-10.1) mg/dL Total Bilirubin (0.2-1.0) mg/dL AST (15-37) U/L ALT (12-78) U/L Alkaline Phosphatase (46-116) U/L Total Protein (6.4-8.2) g/dL Albumin (3.4-5.0) g/dL Globulin (2.3-3.5) g/dL Albumin/Globulin Ratio (1.2-2.2) Salicylates 2.8 (2.0-20.0) mg/dL Acetaminophen (10.0-30.0) ug/mL Ethyl Alcohol < 3 mg/dL Meds: Medications Discontinued Medications Generic Name Dose Route Start Last Admin Trade Name Freq PRN Reason Stop Dose Admin Sodium Chloride 1,000 mls @ 500 mls/hr 10/13/19 01:00 10/13/19 01:03 Normal Saline IV 500 mls/hr ASDIRECTED [facility] Administration - Re-Assessments/Exams Free Text/Narrative Re-Assessment/Exam: 10/13/19 01:53 EKG was done, compared to EMS's onsite EKG. Both showed slight QT prolongation but mild sinus tachycardia otherwise. 1 L normal saline bolus was initiated and patient was kept on cardiac monitoring. She was initially very drowsy but was answering questions appropriately, she rapidly improved over the course of 30 to 40 minutes. Chemistry profile returned reassuring, acetaminophen 0, alcohol was 0. [place] level is a send out and will not return for 4 days so this was not ordered, she was accepted at [facility] in [place] they can draw a level when she arrives. By discharge the patient was sitting up and visiting with almost normal mental status baseline. Departure - Departure Time of Disposition: 02:45 Disposition: DC/Tfer to Other 70 Clinical Impression: Intentional lithium overdose Qualifiers: Encounter type: initial encounter Qualified Code(s): T56.892A - Toxic effect of other metals, intentional self-harm, initial encounter Depression Qualifiers: Depression Type: major depressive disorder Major depression recurrence: recurrent Active/Remission status: currently active Major depression episode severity: severe - Discharge Information Referrals: PCP,None [Primary Care Provider] - Forms: ED Department Discharge Care Plan Goals: Patient is to be transferred via ALS to [facility] in [place] to monitor a fter an intentional large lithium overdose and significant suicide attempt. Dr. Woodson kindly accepted the patient at 1:20 AM. Patient was stable on discharge. Sepsis Event Note (ED) - Focused Exam Vital Signs: Vital Signs Temp Pulse Resp BP Pulse Ox 10/13/19 02:35 98.1 F 88 16 114/73 95 10/13/19 01:12 98.4 F 102 H 11 L 120/77 93 L 10/13/19 01:08 98.4 F 102 H 11 L 120/77 93 L - My Orders Last 24 Hours: My Active Orders 10/13/19 00:48 EKG 12 Lead [EK] Routine - Assessment/Plan Last 24 Hours: My Active Orders 10/13/19 00:48 EKG 12 Lead [EK] Routine
[2019-10-13 02:37] VITALS: BP 114/73; PULSE 88
== END 2019-10-13 03:18 | disposition other institution (70) ==
LOC: JP.ED 00:45
DX: T56.892A Toxic effect of other metals, intentional self-harm, initial encounter (principal); F32.9 Major depressive disorder, single episode, unspecified; R00.0 Tachycardia, unspecified; F41.9 Anxiety disorder, unspecified; Z90.49 Acquired absence of other specified parts of digestive tract; Z98.51 Tubal ligation status; Z88.5 Allergy status to narcotic agent; Z79.899 Other long term (current) drug therapy
CPT/HCPCS: 36415; 80053; 80307; 85025; 93005; 96360; 99285; J7030; 93010

== ENCOUNTER 2019-12-25 11:55 | Emergency (ER) | payer MEDICARE, MEDICAID ==
[2019-12-25 12:11] VITALS: PULSE 70
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
[2019-12-25] MEDS ORDERED: FLU VACC QS2020-21(6MOS UP)/PF 60 MCG/0.5 ML SYRINGE IM ONE (13:00)
[2019-12-25 16:57] VITALS: BP 99/54
== END 2019-12-25 17:53 ==
LOC: JP.ED 11:55
DX: F32.9 Major depressive disorder, single episode, unspecified (principal); R56.9 Unspecified convulsions; F41.9 Anxiety disorder, unspecified; F17.210 Nicotine dependence, cigarettes, uncomplicated; Z88.5 Allergy status to narcotic agent; Z20.828 Contact with and (suspected) exposure to other viral communicable diseases
CPT/HCPCS: 36415; 80053; 80178; 80305; 80307; 81001; 85025; 90686; 99285; G0008; U0002

== ENCOUNTER 2020-01-10 19:15 | Emergency (ER) | payer MEDICARE, MEDICAID ==
--- NOTE | 2020-01-10 19:49 | CRLCT ---
INDICATION: CONFUSION CT HEAD WITHOUT CONTRAST TECHNIQUE: Multiple axial CT images were performed through the head without intravenous contrast administration. COMPARISON: 07/26/[address] FINDINGS: No acute intracranial hemorrhage is identified. No extra-axial collections are evident and there is no mass effect or midline shift. Ventricles are normal in size and configuration. Brain parenchyma appears normal with unremarkable ortiz-white differentiation. Osseous structures are within normal limits and no fractures are seen. Included portions of the paranasal sinuses and mastoid air cells are normally aerated. IMPRESSION: Normal non-contrast head CT. Report called at 7:45pm 01/10/2020. ALEX LARIOS MD [employer] [facility] [employer] Dictated by: Brennon Larios MD @ 01/10/2020 19:48:08 (Electronically Signed)
[2020-01-10] MEDS ORDERED: Sodium Chloride 0.9% 1,000 ML IV SCH ×3 (20:30→22:45)
[2020-01-10] MEDS ORDERED: Acetaminophen/Codeine 300-30 MG Tab PO ONE (21:29)
--- NOTE | 2020-01-10 21:59 | EDM.PDOC ---
<Jesika Guerra - Last Filed: 01/11/20 05:56> ED HPI GENERAL MEDICAL PROBLEM - General Chief Complaint: Neuro Symptoms/Deficits Stated Complaint: MEDICAL VIA [facility] Time Seen by Provider: 01/10/20 19:40 Source of Information: Reports: Patient, EMS History Limitations: Reports: No Limitations - History of Present Illness INITIAL COMMENTS - FREE TEXT/NARRATIVE: pt arrived with a history of not having memory after Tuesday. She was with some saira in a shower and he gave her a pill to take and after that she does not recall anything. She has been sleeping for the past 2 days. She noticed today that she was having trouble moving the left arm and leg. Onset: Gradual Duration: Hour(s): Location: Reports: Upper Extremity, Left, Lower Extremity, Left Associated Symptoms: Reports: No Other Symptoms - Related Data Allergies Allergy/AdvReac Type Severity Reaction Status Date / Time hydrocodone [From Vicodin] Allergy Hives Verified 01/10/20 19:43 morphine Allergy Hives Verified 01/10/20 19:43 oxycodone [From Percocet] Allergy Hives Verified 01/10/20 19:43 Home Meds: Home Meds clonazePAM [Clonazepam] 0.5 mg PO BID 06/24/18 [History] [place] Carbonate 300 mg PO DAILY 02/24/19 [History] Melatonin 9 mg PO BEDTIME 10/13/19 [History] Topiramate [Topamax] 25 mg PO BEDTIME 12/25/19 [History] Past Medical History [employer] History: Reports: Neurological History: Reports: Seizure Psychiatric History: Reports: Anxiety, Bipolar, Depression, Suicide Attempt Other Psychiatric History: ECT treatment - Infectious Disease History Infectious Disease History: Reports: Chicken Pox - Past Surgical History HEENT Surgical History: Reports: Tonsillectomy GI Surgical History: Reports: Appendectomy Female Surgical History: Reports: Tubal Ligation Other Female Surgeries/Procedures: cysts removed from breasts Social & Family History - Tobacco Use Tobacco Use Status *Q: Current Every Day Tobacco User Years of Tobacco use: 15 Packs/Tins Daily: 0.4 - Caffeine Use Caffeine Use: Reports: Soda - Recreational Drug Use Recreational Drug Use: Yes Drug Use in Last 12 Months: Yes Recreational Drug Type: Reports: Methamphetamine Recreational Drug Use Frequency: Rarely Course - Re-Assessments/Exams Free Text/Narrative Re-Assessment/Exam: 01/11/20 02:46 pt had a positve drug test for meth. She had a neg cat scan of the head which was neg. She had normal labs otherwise, pt continues to say she feels confused. Will consider a Mri of the head if still symptomatic . The crisis team may need to evaluate the pt. 01/11/20 05:56 pt is much better. Will obtain a MRI of the head. She then should be evaluated by the crisis team. She was just hospitalized at [facility]. Departure - Departure Disposition: Home, Self-Care 01 Clinical Impression: Methamphetamine abuse, Conversion disorder with abnormal movement, acute episode Urinary tract infection Qualifiers: Urinary tract infection type: acute cystitis Hematuria presence: without hematuria Qualified Code(s): N30.00 - Acute cystitis without hematuria - Discharge Information Instructions: Urinary Tract Infection, Adult, [id number] Referrals: PCP,None [Primary Care Provider] - Forms: ED Department Discharge Additional Instructions: Take full course of antibiotics, please keep your follow-up appointment with your psychiatrist in January, recommending establish primary care [facility] Sepsis Event Note (ED) - Evaluation Sepsis Screening Result: No Definite Risk <OfficerRonny - Last Filed: 01/11/20 10:45> ED ROS GENERAL - Review of Systems Review Of Systems: See Below ED EXAM, NEURO - Physical Exam Exam: See Below Text/Narrative:: Able to move upper and lower extremities without difficulty Exam Limited By: No Limitations General Appearance: Alert, WD/WN, No Apparent Distress Respiratory/Chest: No Respiratory Distress Course - Vital Signs Last Recorded V/S: Last Vital Signs Temp 96.9 F 01/11/20 03:25 Pulse 59 L 01/11/20 03:25 Resp 14 01/11/20 03:25 BP 99/58 L 01/11/20 03:25 Pulse Ox 97 01/11/20 03:25 - Orders/Labs/Meds Orders: Active Orders 24 hr Category Date Time Status Cardiac Monitoring [RC] .As Directed Care 01/10/20 19:35 Active EKG Documentation Completion [RC] ASDIRECTED Care 01/10/20 19:25 Active CULTURE URINE [RM] Stat Lab 01/10/20 22:26 Received CULTURE URINE [RM] Urgent Lab 01/11/20 10:37 Ordered LITHIUM (ESKALITH(R)), SERUM Stat Lab 01/10/20 20:10 Received Sodium Chloride 0.9% [Normal Saline] 1,000 ml Med 01/10/20 20:30 Active IV ASDIRECTED Sodium Chloride 0.9% [Normal Saline] 1,000 ml Med 01/10/20 21:30 Active IV ASDIRECTED Sodium Chloride 0.9% [Normal Saline] 1,000 ml Med 01/10/20 22:45 Active IV ASDIRECTED EKG 12 Lead [EK] Routine Ther 01/10/20 19:25 Ordered Medication Orders Sodium Chloride (Normal Saline) 1,000 mls @ 999 mls/hr IV ASDIRECTED THERON Last Admin: 01/10/20 20:29 Dose: 999 mls/hr Documented by: NARENDRA Sodium Chloride (Normal Saline) 1,000 mls @ 999 mls/hr IV ASDIRECTED THERON Last Admin: 01/10/20 21:29 Dose: 999 mls/hr Documented by: NARENDRA Sodium Chloride (Normal Saline) 1,000 mls @ 300 mls/hr IV ASDIRECTED THERON Last Admin: 01/10/20 22:45 Dose: 300 mls/hr Documented by: NARENDRA Labs: Laboratory Tests 01/10/20 01/10/20 01/10/20 Range/Units 19:39 19:39 21:23 WBC 10.1 (4.5-11.0) K/uL RBC 4.26 (3.30-5.50) M/uL Hgb 12.5 (12.0-15.0) g/dL Hct 38.6 (36.0-48.0) % MCV 91 (80-98) fL MCH 29 (27-31) pg MCHC 32 (32-36) % Plt Count 291 (150-400) K/uL Neut % (Auto) 74 H (36-66) % Lymph % (Auto) 19 L (24-44) % [place] % (Auto) 7 H (2-6) % Eos % (Auto) 1 L (2-4) % Baso % (Auto) 0 (0-1) % Sodium 141 (140-148) mmol/L Potassium 3.7 (3.6-5.2) mmol/L Chloride 104 (100-108) mmol/L Carbon Dioxide 24 (21-32) mmol/L Anion Gap 13.2 (5.0-14.0) mmol/L BUN 9 (7-18) mg/dL Creatinine 0.7 (0.6-1.0) mg/dL Est Cr Clr Drug Dosing 80.57 mL/min Estimated GFR (MDRD) > 60 (>60) Glucose 110 H (74-106) mg/dL Lactic Acid (0.4-2.0) mmol/L Calcium 8.9 (8.5-10.1) mg/dL Total Bilirubin 0.2 (0.2-1.0) mg/dL AST 17 (15-37) U/L ALT 21 (12-78) U/L Alkaline Phosphatase 65 (46-116) U/L C-Reactive Protein (0.0-0.3) mg/dL Total Protein 7.2 (6.4-8.2) g/dL Albumin 3.8 (3.4-5.0) g/dL Globulin 3.4 (2.3-3.5) g/dL Albumin/Globulin Ratio 1.1 L (1.2-2.2) Urine Color (YELLOW) Urine Appearance (CLEAR) Urine pH (5.0-8.0) Ur Specific [place] (1.008-1.030) Urine Protein (NEGATIVE) mg/dL Urine Glucose (UA) (NEGATIVE) mg/dL Urine Ketones (NEGATIVE) mg/dL Urine Occult Blood (NEGATIVE) Urine Nitrite (NEGATIVE) Urine Bilirubin (NEGATIVE) Urine Urobilinogen (0.2-1.0) EU/dL Ur Leukocyte Esterase (NEGATIVE) Urine RBC (0-5) Urine WBC (0-5) Ur Epithelial Cells Amorphous Sediment Urine Bacteria Urine Mucus Urine Opiates Screen (NEGATIVE) Ur Oxycodone Screen (NEGATIVE) Urine Methadone Screen (NEGATIVE) Ur Propoxyphene Screen (NEGATIVE) Ur Barbiturates Screen (NEGATIVE) Ur Tricyclics Screen (NEGATIVE) Ur Phencyclidine Scrn (NEGATIVE) Ur Amphetamine Screen (NEGATIVE) U Methamphetamines Scrn (NEGATIVE) Urine MDMA Screen (NEGATIVE) U Benzodiazepines Scrn (NEGATIVE) U Cocaine Metab Screen (NEGATIVE) U Marijuana (THC) Screen (NEGATIVE) SARS CoV-2 RNA Rapid SHIRIN Negative 01/10/20 01/10/20 01/10/20 Range/Units 22:06 22:06 23:00 WBC (4.5-11.0) K/uL RBC (3.30-5.50) M/uL Hgb (12.0-15.0) g/dL Hct (36.0-48.0) % MCV (80-98) fL MCH (27-31) pg MCHC (32-36) % Plt Count (150-400) K/uL Neut % (Auto) (36-66) % Lymph % (Auto) (24-44) % [place] % (Auto) (2-6) % Eos % (Auto) (2-4) % Baso % (Auto) (0-1) % Sodium (140-148) mmol/L Potassium (3.6-5.2) mmol/L Chloride (100-108) mmol/L Carbon Dioxide (21-32) mmol/L Anion Gap (5.0-14.0) mmol/L BUN (7-18) mg/dL Creatinine (0.6-1.0) mg/dL Est Cr Clr Drug Dosing mL/min Estimated GFR (MDRD) (>60) Glucose (74-106) mg/dL Lactic Acid 0.6 (0.4-2.0) mmol/L Calcium (8.5-10.1) mg/dL Total Bilirubin (0.2-1.0) mg/dL AST (15-37) U/L ALT (12-78) U/L Alkaline Phosphatase (46-116) U/L C-Reactive Protein (0.0-0.3) mg/dL Total Protein (6.4-8.2) g/dL Albumin (3.4-5.0) g/dL Globulin (2.3-3.5) g/dL Albumin/Globulin Ratio (1.2-2.2) Urine Color Brown A (YELLOW) Urine Appearance Cloudy A (CLEAR) Urine pH 7.0 (5.0-8.0) Ur Specific [place] 1.020 (1.008-1.030) Urine Protein Trace H (NEGATIVE) mg/dL Urine Glucose (UA) Negative (NEGATIVE) mg/dL Urine Ketones 40 H (NEGATIVE) mg/dL Urine Occult Blood Negative (NEGATIVE) Urine Nitrite Positive H (NEGATIVE) Urine Bilirubin Moderate H (NEGATIVE) Urine Urobilinogen 1.0 (0.2-1.0) EU/dL Ur Leukocyte Esterase Trace H (NEGATIVE) Urine RBC 0-5 (0-5) Urine WBC 0-5 (0-5) Ur Epithelial Cells Moderate Amorphous Sediment Moderate Urine Bacteria Many Urine Mucus Not seen Urine Opiates Screen Negative (NEGATIVE) Ur Oxycodone Screen Negative (NEGATIVE) Urine Methadone Screen Negative (NEGATIVE) Ur Propoxyphene Screen Negative (NEGATIVE) Ur Barbiturates Screen Negative (NEGATIVE) Ur Tricyclics Screen Negative (NEGATIVE) Ur Phencyclidine Scrn Negative (NEGATIVE) Ur Amphetamine Screen Negative (NEGATIVE) U Methamphetamines Scrn Presumptive positive H (NEGATIVE) Urine MDMA Screen Negative (NEGATIVE) U Benzodiazepines Scrn Negative (NEGATIVE) U Cocaine Metab Screen Negative (NEGATIVE) U Marijuana (THC) Screen Negative (NEGATIVE) SARS CoV-2 RNA Rapid SHIRIN 01/10/20 Range/Units 23:00 WBC (4.5-11.0) K/uL RBC (3.30-5.50) M/uL Hgb (12.0-15.0) g/dL Hct (36.0-48.0) % MCV (80-98) fL MCH (27-31) pg MCHC (32-36) % Plt Count (150-400) K/uL Neut % (Auto) (36-66) % Lymph % (Auto) (24-44) % [place] % (Auto) (2-6) % Eos % (Auto) (2-4) % Baso % (Auto) (0-1) % Sodium (140-148) mmol/L Potassium (3.6-5.2) mmol/L Chloride (100-108) mmol/L Carbon Dioxide (21-32) mmol/L Anion Gap (5.0-14.0) mmol/L BUN (7-18) mg/dL Creatinine (0.6-1.0) mg/dL Est Cr Clr Drug Dosing mL/min Estimated GFR (MDRD) (>60) Glucose (74-106) mg/dL Lactic Acid (0.4-2.0) mmol/L Calcium (8.5-10.1) mg/dL Total Bilirubin (0.2-1.0) mg/dL AST (15-37) U/L ALT (12-78) U/L Alkaline Phosphatase (46-116) U/L C-Reactive Protein 0.68 H (0.0-0.3) mg/dL Total Protein (6.4-8.2) g/dL Albumin (3.4-5.0) g/dL Globulin (2.3-3.5) g/dL Albumin/Globulin Ratio (1.2-2.2) Urine Color (YELLOW) Urine Appearance (CLEAR) Urine pH (5.0-8.0) Ur Specific [place] (1.008-1.030) Urine Protein (NEGATIVE) mg/dL Urine Glucose (UA) (NEGATIVE) mg/dL Urine Ketones (NEGATIVE) mg/dL Urine Occult Blood (NEGATIVE) Urine Nitrite (NEGATIVE) Urine Bilirubin (NEGATIVE) Urine Urobilinogen (0.2-1.0) EU/dL Ur Leukocyte Esterase (NEGATIVE) Urine RBC (0-5) Urine WBC (0-5) Ur Epithelial Cells Amorphous Sediment Urine Bacteria Urine Mucus Urine Opiates Screen (NEGATIVE) Ur Oxycodone Screen (NEGATIVE) Urine Methadone Screen (NEGATIVE) Ur Propoxyphene Screen (NEGATIVE) Ur Barbiturates Screen (NEGATIVE) Ur Tricyclics Screen (NEGATIVE) Ur Phencyclidine Scrn (NEGATIVE) Ur Amphetamine Screen (NEGATIVE) U Methamphetamines Scrn (NEGATIVE) Urine MDMA Screen (NEGATIVE) U Benzodiazepines Scrn (NEGATIVE) U Cocaine Metab Screen (NEGATIVE) U Marijuana (THC) Screen (NEGATIVE) SARS CoV-2 RNA Rapid SHIRIN Meds: Medications Generic Name Dose Route Start Last Admin Trade Name Freq PRN Reason Stop Dose Admin Sodium Chloride 1,000 mls @ 999 mls/hr 01/10/20 20:30 01/10/20 20:29 Normal Saline IV 999 mls/hr ASDIRECTED THERON Administration Sodium Chloride 1,000 mls @ 999 mls/hr 01/10/20 21:30 01/10/20 21:29 Normal Saline IV 999 mls/hr ASDIRECTED THERON Administration Sodium Chloride 1,000 mls @ 300 mls/hr 01/10/20 22:45 01/10/20 22:45 Normal Saline IV 300 mls/hr ASDIRECTED THERON Administration Discontinued Medications Generic Name Dose Route Start Last Admin Trade Name Freq PRN Reason Stop Dose Admin Acetaminophen/Codeine Phosphate 1 tab 01/10/20 21:29 01/10/20 21:42 Tylenol With Codeine No.3 300mg/30mg PO 01/10/20 21:30 1 tab ONETIME ONE Administration Al Hydroxide/Mg Hydroxide 30 ml 01/11/20 01:42 01/11/20 01:47 Mag-Al Plus PO 01/11/20 01:43 30 ml ONETIME ONE Administration Famotidine 20 mg 01/11/20 05:48 01/11/20 06:22 Pepcid PO 01/11/20 05:49 20 mg ONETIME ONE Administration Ceftriaxone Sodium 1 gm/ 50 mls @ 100 mls/hr 01/10/20 22:23 01/10/20 22:58 Sodium Chloride IV 01/10/20 22:52 100 mls/hr ONETIME ONE Administration Ketorolac Tromethamine 30 mg 01/10/20 22:44 01/10/20 23:04 Toradol IVPUSH 01/10/20 22:45 30 mg ONETIME ONE Administration [place] Carbonate 300 mg 01/10/20 23:16 01/11/20 00:46 Lithobid PO 01/10/20 23:17 300 mg ONETIME ONE Administration Ondansetron HCl 4 mg 01/10/20 22:51 01/10/20 23:04 Zofran IVPUSH 01/10/20 22:52 4 mg ONETIME ONE Administration Departure - Departure Time of Disposition: 10:43 Condition: Poor Sepsis Event Note (ED) - Focused Exam Vital Signs: Vital Signs Temp Pulse Resp BP Pulse Ox 01/11/20 03:25 96.9 F 59 L 14 99/58 L 97 01/10/20 23:23 95.5 F L 56 L 7 L 110/64 97 - My Orders Last 24 Hours: My Active Orders 01/11/20 10:37 CULTURE URINE [RM] Urgent - Assessment/Plan Last 24 Hours: My Active Orders 01/11/20 10:37 CULTURE URINE [RM] Urgent Plan: Took over care from Dr. Guerra 7 AM awaiting results of MRI Assessment Acuity = acute Site and laterality = sudden onset left-sided paralysis now resolved suspect conversion disorder given extensive psychiatric history. Probable urinary tract infection Etiology = unknown for paralysis, probable bacterial cause for urinary tract infection Manifestations = none Location of injury = Home Lab values = CBC, CMP, lactic acid all within normal limits urinalysis does have positive nitrates with trace leukocyte esterase many bacteria appreciated in the culture urine drug screen positive for methamphetamine which she denies, CT scan of the head and MRI of the head revealed no acute process Plan I did review MRI results with her which were negative she does have follow-up appointment with her psychiatrist in January I have asked her to establish with a primary care provider at [facility] for further evaluation and treatment. Prescription written for Bactrim DS 1 tab p.o. twice daily x3days culture will be available in 3 to 4 days This note was dictated using [employer] voice recognition software please call with any questions on syntax or grammar.
[2020-01-10] MEDS ORDERED: cefTRIAXone 1 GM in Sodium Chloride 0.9% 50 ML IV ONE (22:23)
[2020-01-10] MEDS ORDERED: Ketorolac 30 MG/ML SDV IVPUSH ONE (22:44)
[2020-01-10] MEDS ORDERED: Ondansetron 4 MG/2 ML SDV IVPUSH ONE (22:51)
[2020-01-10] MEDS ORDERED: Lithium Carbonate 300 MG Tab.ER PO ONE (23:16)
[2020-01-11] MEDS ORDERED: Aluminum Hydroxide/Magnesium Hydroxide/Simethicone Susp 30 ML Cup PO ONE (01:42)
[2020-01-11 03:26] VITALS: BP 99/58; PULSE 59
[2020-01-11] MEDS ORDERED: Famotidine 20 MG Tab PO ONE (05:48)
--- NOTE | 2020-01-11 08:58 | CR ---
Shoulder Comp Lt CLINICAL HISTORY: Pain FINDINGS: There is no acute fracture or dislocation in the left shoulder. Articular surfaces are smooth. Impression: Negative
--- NOTE | 2020-01-11 10:03 | MR ---
Brain wo Cont CLINICAL HISTORY: Left arm weakness COMPARISON: CT brain 01/10/2020 TECHNIQUE: Multiple axial, sagittal, and coronal images were obtained on a 1.5 T magnet with multiweighted sequences, FLAIR, and diffusion imaging without contrast. FINDINGS: There is no focal mass lesion. There is no hemmorhage or extraaxial collection. No restricted diffusion is identified. The basal cisterns and sulci over the convexities are normal. The ventricles are normal. IMPRESSION: No acute intracranial abnormality
== END 2020-01-11 11:46 | disposition home or self-care (01) ==
LOC: JP.ED 19:15
DX: F44.4 Conversion disorder with motor symptom or deficit (principal); N30.00 Acute cystitis without hematuria; F15.10 Other stimulant abuse, uncomplicated; F41.9 Anxiety disorder, unspecified; F31.9 Bipolar disorder, unspecified; F17.210 Nicotine dependence, cigarettes, uncomplicated; Z88.5 Allergy status to narcotic agent; Z79.899 Other long term (current) drug therapy; Z20.828 Contact with and (suspected) exposure to other viral communicable diseases
CPT/HCPCS: 36415; 70450; 70551; 73030; 80053; 80178; 80305; 81001; 83605; 85025; 86140; 87086; 93005; 96365; 96375; 99285; A9270; J0696; J1885; J2405; J7030; J7050; U0002

== ENCOUNTER 2020-11-30 18:33 | Emergency (ER) | payer MEDICARE, MEDICAID ==
--- NOTE | 2020-11-30 19:32 | EDM.PDOCBH ---
ED HPI GENERAL MEDICAL PROBLEM - General Chief Complaint: Behavioral/Psych Stated Complaint: mental health eval Time Seen by Provider: 11/30/20 19:10 Source of Information: Reports: Patient History Limitations: Reports: No Limitations - History of Present Illness INITIAL COMMENTS - FREE TEXT/NARRATIVE: Val is a 35-year-old female who presents to the ED for evaluation of medrano icide ideation. The patient reports that she has bipolar disorder type I and had been on lithium for most of her life but was recently changed from lithium to Vraylar. She says since coming off the lithium she has had significant worsening of mood, continuous suicide ideation, severe depression at times where she does not even want to get out of bed. Worsening in her social skills with with being withdrawn and nonconfrontational. More rapid cycling of her mood associated with agitation. Patient denies any alcohol use. She denies any illicit drug use. She has not had of any Covid related symptoms. She has been hospitalized many times before including for previous suicide attempts. Her plan today would be to either hang herself or overdose. 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: Neurological History: Reports: Seizure Psychiatric History: Reports: Anxiety, Bipolar, Depression, Suicide Attempt Other Psychiatric History: ECT treatment - Infectious Disease History Infectious Disease History: Reports: Chicken Pox - Past Surgical History HEENT Surgical History: Reports: Tonsillectomy GI Surgical History: Reports: Appendectomy Female Surgical History: Reports: Tubal Ligation Other Female Surgeries/Procedures: cysts removed from breasts Social & Family History - Caffeine Use Caffeine Use: Reports: Soda ED ROS GENERAL - Review of Systems Review Of Systems: See Below Constitutional: Reports: No Symptoms HEENT: Reports: No Symptoms Respiratory: Reports: No Symptoms Cardiovascular: Reports: No Symptoms Endocrine: Reports: No Symptoms GI/Abdominal: Reports: No Symptoms : Reports: No Symptoms Musculoskeletal: Reports: No Symptoms Skin: Reports: No Symptoms Neurological: Reports: No Symptoms Psychiatric: Reports: Anxiety, Depression, Mood Lability, Suicidal Ideation, Other (Withdrawn. Wanting to sleep all the time.) Hematologic/Lymphatic: Reports: No Symptoms Immunologic: Reports: No Symptoms ED EXAM, BEHAVIORAL HEALTH - Physical Exam Exam: See Below Exam Limited By: No Limitations General Appearance: Alert, No Apparent Distress, Anxious, Obese Eye Exam: Bilateral Eye: EOMI, PERRL Throat/Mouth: Normal Inspection, Normal Oropharynx, Normal Voice, No Airway Compromise Head: Atraumatic, Normocephalic Neck: Normal Inspection, Supple, Non-Tender, Full Range of Motion Respiratory/Chest: No Respiratory Distress, Lungs Clear, Normal Breath Sounds Cardiovascular: Normal Peripheral Pulses, Regular Rate, Rhythm, No Murmur GI/Abdominal: Normal Bowel Sounds, Soft, Non-Tender Back Exam: Normal Inspection, Full Range of Motion Extremities: Normal Inspection, Normal Range of Motion Neurological: Alert, CN II-XII Intact, Normal Cognition, Normal Reflexes, No Motor/Sensory Deficits, Oriented x 3 Psychiatric: Depressed Mood, Poor Eye Contact, Suicidal Thoughts, Other (Withdrawn, poor eye contact). No: Homicidal Thoughts, Threatening Behavior Skin Exam: Warm, Dry, Intact COURSE, BEHAVIORAL HEALTH COMP - Course Vital Signs: Last Vital Signs Temp 36.7 C 11/30/20 19:19 Pulse 119 H 11/30/20 19:19 Resp 16 11/30/20 19:19 BP 93/67 11/30/20 19:19 Pulse Ox 100 11/30/20 19:19 Orders, Labs, Meds: Laboratory Tests 11/30/20 11/30/20 11/30/20 Range/Units 19:11 19:11 19:11 WBC (4.5-11.0) K/uL RBC (3.30-5.50) M/uL Hgb (12.0-15.0) g/dL Hct (36.0-48.0) % MCV (80-98) fL MCH (27-31) pg MCHC (32-36) % Plt Count (150-400) K/uL Neut % (Auto) (36-66) % Lymph % (Auto) (24-44) % Bound[place] % (Auto) (2-6) % Eos % (Auto) (2-4) % Baso % (Auto) (0-1) % Sodium (140-148) mmol/L Potassium (3.6-5.2) mmol/L Chloride (100-108) mmol/L Carbon Dioxide (21-32) mmol/L Anion Gap (5.0-14.0) mmol/L BUN (7-18) mg/dL Creatinine (0.6-1.0) mg/dL Est Cr Clr Drug Dosing Estimated GFR (MDRD) (>60) Glucose (74-106) mg/dL Calcium (8.5-10.1) mg/dL Total Bilirubin (0.2-1.0) mg/dL AST (15-37) U/L ALT (12-78) U/L Alkaline Phosphatase (46-116) U/L Total Protein (6.4-8.2) g/dL Albumin (3.4-5.0) g/dL Globulin (2.3-3.5) g/dL Albumin/Globulin Ratio (1.2-2.2) Urine Color Yellow (YELLOW) Urine Appearance Slightly cloudy A (CLEAR) Urine pH 5.5 (5.0-8.0) Ur Specific [place] >= 1.030 (1.008-1.030) Urine Protein Negative (NEGATIVE) mg/dL Urine Glucose (UA) Negative (NEGATIVE) mg/dL Urine Ketones Negative (NEGATIVE) mg/dL Urine Occult Blood Small H (NEGATIVE) Urine Nitrite Negative (NEGATIVE) Urine Bilirubin Negative (NEGATIVE) Urine Urobilinogen 0.2 (0.2-1.0) EU/dL Ur Leukocyte Esterase Negative (NEGATIVE) Urine RBC 0-5 (0-5) Urine WBC 0-5 (0-5) Ur Epithelial Cells Many Amorphous Sediment Few Urine Bacteria Few Urine Mucus Few Urine HCG, Qual Negative Urine Opiates Screen Negative (NEGATIVE) Ur Oxycodone Screen Negative (NEGATIVE) Urine Methadone Screen Negative (NEGATIVE) Ur Propoxyphene Screen Negative (NEGATIVE) Ur Barbiturates Screen Negative (NEGATIVE) Ur Tricyclics Screen Negative (NEGATIVE) Ur Phencyclidine Scrn Negative (NEGATIVE) Ur Amphetamine Screen Negative (NEGATIVE) U Methamphetamines Scrn Presumptive positive H (NEGATIVE) Urine MDMA Screen Negative (NEGATIVE) U Benzodiazepines Scrn Negative (NEGATIVE) U Cocaine Metab Screen Negative (NEGATIVE) U Marijuana (THC) Screen Negative (NEGATIVE) Ethyl Alcohol mg/dL SARS CoV-2 RNA Rapid SHIRIN 11/30/20 11/30/20 11/30/20 Range/Units 19:23 19:23 19:23 WBC 11.7 H (4.5-11.0) K/uL RBC 4.56 (3.30-5.50) M/uL Hgb 13.1 (12.0-15.0) g/dL Hct 40.4 (36.0-48.0) % MCV 89 (80-98) fL MCH 29 (27-31) pg MCHC 32 (32-36) % Plt Count 332 (150-400) K/uL Neut % (Auto) 68.0 H (36-66) % Lymph % (Auto) 24.8 (24-44) % Bound[place] % (Auto) 5.7 (2-6) % Eos % (Auto) 1.2 L (2-4) % Baso % (Auto) 0.3 (0-1) % Sodium 137 L (140-148) mmol/L Potassium 3.9 (3.6-5.2) mmol/L Chloride 100 (100-108) mmol/L Carbon Dioxide 27 (21-32) mmol/L Anion Gap 13.9 (5.0-14.0) mmol/L BUN 15 D (7-18) mg/dL Creatinine 0.7 (0.6-1.0) mg/dL Est Cr Clr Drug Dosing TNP Estimated GFR (MDRD) > 60 (>60) Glucose 109 H (74-106) mg/dL Calcium 9.1 (8.5-10.1) mg/dL Total Bilirubin 0.1 L (0.2-1.0) mg/dL AST 11 L (15-37) U/L ALT 24 (12-78) U/L Alkaline Phosphatase 76 (46-116) U/L Total Protein 6.8 (6.4-8.2) g/dL Albumin 3.6 (3.4-5.0) g/dL Globulin 3.2 (2.3-3.5) g/dL Albumin/Globulin Ratio 1.1 L (1.2-2.2) Urine Color (YELLOW) Urine Appearance (CLEAR) Urine pH (5.0-8.0) Ur Specific [place] (1.008-1.030) Urine Protein (NEGATIVE) mg/dL Urine Glucose (UA) (NEGATIVE) mg/dL Urine Ketones (NEGATIVE) mg/dL Urine Occult Blood (NEGATIVE) Urine Nitrite (NEGATIVE) Urine Bilirubin (NEGATIVE) Urine Urobilinogen (0.2-1.0) EU/dL Ur Leukocyte Esterase (NEGATIVE) Urine RBC (0-5) Urine WBC (0-5) Ur Epithelial Cells Amorphous Sediment Urine Bacteria Urine Mucus Urine HCG, Qual Urine Opiates Screen (NEGATIVE) Ur Oxycodone Screen (NEGATIVE) Urine Methadone Screen (NEGATIVE) Ur Propoxyphene Screen (NEGATIVE) Ur Barbiturates Screen (NEGATIVE) Ur Tricyclics Screen (NEGATIVE) Ur Phencyclidine Scrn (NEGATIVE) Ur Amphetamine Screen (NEGATIVE) U Methamphetamines Scrn (NEGATIVE) Urine MDMA Screen (NEGATIVE) U Benzodiazepines Scrn (NEGATIVE) U Cocaine Metab Screen (NEGATIVE) U Marijuana (THC) Screen (NEGATIVE) Ethyl Alcohol 4 mg/dL SARS CoV-2 RNA Rapid SHIRIN 12/01/20 Range/Units 00:05 WBC (4.5-11.0) K/uL RBC (3.30-5.50) M/uL Hgb (12.0-15.0) g/dL Hct (36.0-48.0) % MCV (80-98) fL MCH (27-31) pg MCHC (32-36) % Plt Count (150-400) K/uL Neut % (Auto) (36-66) % Lymph % (Auto) (24-44) % Bound[place] % (Auto) (2-6) % Eos % (Auto) (2-4) % Baso % (Auto) (0-1) % Sodium (140-148) mmol/L Potassium (3.6-5.2) mmol/L Chloride (100-108) mmol/L Carbon Dioxide (21-32) mmol/L Anion Gap (5.0-14.0) mmol/L BUN (7-18) mg/dL Creatinine (0.6-1.0) mg/dL Est Cr Clr Drug Dosing Estimated GFR (MDRD) (>60) Glucose (74-106) mg/dL Calcium (8.5-10.1) mg/dL Total Bilirubin (0.2-1.0) mg/dL AST (15-37) U/L ALT (12-78) U/L Alkaline Phosphatase (46-116) U/L Total Protein (6.4-8.2) g/dL Albumin (3.4-5.0) g/dL Globulin (2.3-3.5) g/dL Albumin/Globulin Ratio (1.2-2.2) Urine Color (YELLOW) Urine Appearance (CLEAR) Urine pH (5.0-8.0) Ur Specific [place] (1.008-1.030) Urine Protein (NEGATIVE) mg/dL Urine Glucose (UA) (NEGATIVE) mg/dL Urine Ketones (NEGATIVE) mg/dL Urine Occult Blood (NEGATIVE) Urine Nitrite (NEGATIVE) Urine Bilirubin (NEGATIVE) Urine Urobilinogen (0.2-1.0) EU/dL Ur Leukocyte Esterase (NEGATIVE) Urine RBC (0-5) Urine WBC (0-5) Ur Epithelial Cells Amorphous Sediment Urine Bacteria Urine Mucus Urine HCG, Qual Urine Opiates Screen (NEGATIVE) Ur Oxycodone Screen (NEGATIVE) Urine Methadone Screen (NEGATIVE) Ur Propoxyphene Screen (NEGATIVE) Ur Barbiturates Screen (NEGATIVE) Ur Tricyclics Screen (NEGATIVE) Ur Phencyclidine Scrn (NEGATIVE) Ur Amphetamine Screen (NEGATIVE) U Methamphetamines Scrn (NEGATIVE) Urine MDMA Screen (NEGATIVE) U Benzodiazepines Scrn (NEGATIVE) U Cocaine Metab Screen (NEGATIVE) U Marijuana (THC) Screen (NEGATIVE) Ethyl Alcohol mg/dL SARS CoV-2 RNA Rapid SHIRIN Negative Medical Clearance: 12/01/20 00:39 I reviewed the patient's labs showing a normal CBC, comprehensive metabolic panel, urinalysis and alcohol level. The patient is not . Her urine drug screen was positive for methamphetamine which was likely a cross reaction to Vyvanse. At this time she is medically cleared for admission to inpatient psychiatry. Discharge vs Psych Eval/Treatment:: 12/01/20 05:10 [facility] request the patient be placed on a 72-hour hold due to her suicide ideation with the plan. Hold was initiated on 12/01/2020 at 0500 hrs. The patient was accepted in transfer by Dr. Rhodes. Departure - Departure Time of Disposition: 05:17 Disposition: DC/Tfer to Psych Hosp/Unit 65 Clinical Impression: Suicidal ideation, Charbel-Silver syndrome Depression Qualifiers: Depression Type: major depressive disorder Major depression recurrence: recurrent Active/Remission status: currently active Major depression episode severity: severe Psychotic features: without psychotic features Qualified Code(s): F33.2 - Major depressive disorder, recurrent severe without psychotic features Bipolar disorder Qualifiers: Active/Remission status: currently active Current bipolar episode type: depressed Current episode severity: severe Psychotic features: without psychotic features Qualified Code(s): F31.4 - Bipolar disorder, current episode depressed, severe, without psychotic features - Discharge Information Referrals: PCP,None [Primary Care Provider] - Forms: ED Department Discharge Sepsis Event Note (ED) - Focused Exam Vital Signs: Vital Signs Temp Pulse Resp BP Pulse Ox 11/30/20 19:19 36.7 C 119 H 16 93/67 100 - Problem List & Annotations (1) Depression SNOMED Code(s): 77837607 Code(s): F32.9 - MAJOR DEPRESSIVE DISORDER, SINGLE EPISODE, UNSPECIFIED Status: Acute Priority: High Current Visit: Yes Qualifiers: Depression Type: major depressive disorder Major depression recurrence: recurrent Active/Remission status: currently active Major depression episode severity: severe Psychotic features: without psychotic features Qualified Code(s): F33.2 - Major depressive disorder, recurrent severe without psychotic features (2) Suicidal ideation SNOMED Code(s): 6811725 Code(s): R45.851 - SUICIDAL IDEATIONS Status: Acute Priority: High Current Visit: Yes (3) Charbel-Silver syndrome SNOMED Code(s): 31136625 Code(s): Q87.19 - OTHER CONGEN MALFORM SYND PREDOM ASSOC WITH SHORT STATURE Status: Chronic Priority: Medium Current Visit: Yes (4) Bipolar disorder SNOMED Code(s): 22095730 Code(s): F31.9 - BIPOLAR DISORDER, UNSPECIFIED Status: Acute Priority: High Current Visit: Yes Qualifiers: Active/Remission status: currently active Current bipolar episode type: depressed Current episode severity: severe Psychotic features: without psychotic features Qualified Code(s): F31.4 - Bipolar disorder, current episod e depressed, severe, without psychotic features - Problem List Review Problem List Initiated/Reviewed/Updated: Yes
[2020-12-01] MEDS ORDERED: Acetaminophen 500 MG Tab PO ONE (07:30)
[2020-12-01 07:59] VITALS: BP 96/56; PULSE 90
== END 2020-12-01 08:51 ==
LOC: JP.ED 18:33
DX: F33.2 Major depressive disorder, recurrent severe without psychotic features (principal); Z20.822 Contact with and (suspected) exposure to COVID-19; Z88.5 Allergy status to narcotic agent; Z79.899 Other long term (current) drug therapy
CPT/HCPCS: 36415; 80053; 80305; 80307; 81001; 81025; 85025; 99285; A9270; U0002

== ENCOUNTER 2021-03-25 14:39 | Emergency (ER) | payer MEDICARE, MEDICAID ==
[2021-03-25 14:53] VITALS: BP 144/87; PULSE 111
[2021-03-25 17:12] LABS: CORONAVIRUS COVID-19 NAA POSITIVE (NEGATIVE)
== END 2021-03-25 18:16 ==
LOC: JP.ED 14:39
DX: U07.1 COVID-19 (principal); F31.4 Bipolar disorder, current episode depressed, severe, without psychotic features; R45.851 Suicidal ideations; Z72.0 Tobacco use; Z88.5 Allergy status to narcotic agent
CPT/HCPCS: 0241U; 36415; 80053; 80305; 81001; 81025; 84443; 85027; 99285

== ENCOUNTER 2024-09-20 06:14 | Day surgery (SDC) | payer MEDICARE, MEDICAID ==
[2024-09-20] MEDS ORDERED: fentaNYL 100 MCG/2 ML SDV ONE (07:20)
[2024-09-20] MEDS ORDERED: Propofol 200 MG/20 ML SDV ONE (07:20)
[2024-09-20] MEDS ORDERED: Midazolam 1 MG/ML 2 ML SDV ONE (07:20)
[2024-09-20] MEDS: Lactated Ringers 1,000 ML IV SCH (07:29)
[2024-09-20 09:07] VITALS: BP 117/80; PULSE 76
== END 2024-09-20 09:10 | disposition home or self-care (01) ==
LOC: JP.SDS 06:14
PROVIDERS: ATTEND Surgery
DX: Z01.818 Encounter for other preprocedural examination (principal); K20.90 Esophagitis, unspecified without bleeding; E66.01 Morbid (severe) obesity due to excess calories
CPT/HCPCS: 00731; 43239; J2250; J2704; J3010; J7120

== ENCOUNTER 2024-11-18 17:33 | Emergency (ER) | payer MEDICARE, MEDICAID ==
[2024-11-18 17:47] VITALS: BP 139/83; PULSE 82
== END 2024-11-18 18:16 | disposition left against medical advice (07) ==
LOC: JP.ED 17:33
DX: Z53.21 Procedure and treatment not carried out due to patient leaving prior to being seen by health care provider (principal)

== ENCOUNTER 2024-11-19 16:35 | Emergency (ER) | payer MEDICARE, MEDICAID ==
[2024-11-19 16:39] VITALS: BP 141/87; PULSE 99
[2024-11-19] MEDS ORDERED: Ondansetron 4 MG Tab.DIS PO ONE (17:13)
[2024-11-19 17:25] LABS: CORONAVIRUS COVID-19 NAA NEGATIVE (NEGATIVE); INFLUENZA A NAA NEGATIVE (NEGATIVE); INFLUENZA B NAA NEGATIVE (NEGATIVE); RESPIRATORY SYNCYTIAL VIR NAA NEGATIVE (NEGATIVE)
== END 2024-11-19 17:27 | disposition left against medical advice (07) ==
LOC: JP.ED 16:35
DX: R05.9 Cough, unspecified (principal); R09.81 Nasal congestion; R11.10 Vomiting, unspecified; Z88.5 Allergy status to narcotic agent; Z79.899 Other long term (current) drug therapy; Z86.16 Personal history of COVID-19; Z90.49 Acquired absence of other specified parts of digestive tract; Z87.891 Personal history of nicotine dependence
CPT/HCPCS: 87637; 99282; 99283